=== PATIENT | male | born 1970 | race Caucasian/White ===

== ENCOUNTER 2023-06-25 21:47 | Emergency (ER) | payer BC | END 2023-06-25 23:39 | disposition home or self-care (01) | LOC: DL.ED 21:47 → MERGE 21:47 → DL.ED 23:39 | DX: R07.89 Other chest pain (principal); I10 Essential (primary) hypertension; Z86.16 Personal history of COVID-19; Z87.891 Personal history of nicotine dependence | CPT/HCPCS: 71101-RT; 94010; 99284 ==